=== PATIENT | female | born 1980 | race Hispanic/Latino ===

== ENCOUNTER 2021-12-16 21:29 | Emergency (ER) | payer OTHER ==
[~2021-12-16] VITALS: Ht 160 cm; Wt 87.5 kg
[2021-12-16] MEDS ORDERED: SODIUM CHLORIDE 0.9% 500ML 500 ML IV STA (21:53)
[2021-12-16] MEDS ORDERED: DEXAMETHASONE SOD PHOS 10 MG/1 ML VIAL IV ONE (22:00)
[2021-12-16] MEDS ORDERED: KETOROLAC TROMETHAMINE 30 MG/ML VIAL IV ONE (22:00)
[2021-12-16] MEDS ORDERED: HYDRALAZINE HCL 20 MG/ML VIAL IV ONE (22:00)
[2021-12-16] MEDS ORDERED: ONDANSETRON HCL INJ 2MG/ML 2ML 2 MG/ML VIAL IV ONE (22:00)
[2021-12-16] MEDS ORDERED: DIPHENHYDRAMINE HCL INJ 50 MG/ML VIAL IV ONE (22:00)
[2021-12-16] MEDS ORDERED: DEXAMETHASONE SOD PHOS INJ 4 MG/ML SDV ONE (23:15)
[2021-12-16] MEDS ORDERED: DIPHENHYDRAMINE HCL INJ 50 MG/ML VIAL ONE (23:15)
[2021-12-16] MEDS ORDERED: ONDANSETRON HCL INJ 2MG/ML 2ML 2 MG/ML VIAL ONE (23:15)
[2021-12-16] MEDS ORDERED: KETOROLAC TROMETHAMINE 30 MG/ML VIAL ONE (23:15)
[2021-12-16] MEDS ORDERED: HYDRALAZINE HCL 20 MG/ML VIAL ONE (23:15)
[2021-12-16] MEDS ORDERED: SODIUM CHLORIDE 0.9% 500ML 500 ML ONE (23:16)
[2021-12-16] MEDS ORDERED: ESGIC 50-325-41 EACH PO (23:38)
[2021-12-16] MEDS ORDERED: LOSARTAN POTASS25 MG PO (23:38)
[2021-12-16] MEDS ORDERED: IBUPROFEN200 MG PO (23:47)
[2021-12-16 23:50] VITALS: BP 135/78
== END 2021-12-16 23:50 | disposition home or self-care (01) ==
LOC: FSED 21:32
DX: I16.0 Hypertensive urgency (principal); R51.9 Headache, unspecified; R73.9 Hyperglycemia, unspecified; I10 Essential (primary) hypertension
CPT/HCPCS: 70450; 80053; 81003; 81025; 85025; 96374; 96375; 96376; 99284; J0360; J1100; J1200; J1885; J2405; J7040

== ENCOUNTER 2023-08-24 11:12 | Emergency (ER) | payer OTHER ==
[~2023-08-24] VITALS: Ht 160 cm; Wt 87.5 kg
[~2023-08-24 11:12] MED LIST: ESGIC 50-325-41 EACH PO; IBUPROFEN200 MG PO; LOSARTAN POTASS25 MG PO
[2023-08-24] MEDS: FAMOTIDINE 20 MG/2 ML VIAL IV STA (11:39)
[2023-08-24] MEDS: ONDANSETRON HCL INJ 2MG/ML 2ML 2 MG/ML VIAL IV STA (11:39)
[2023-08-24] MEDS: ASPIRIN 81 MG CHEW TAB PO STA (12:31)
[2023-08-24] MEDS: MAGNESIUM/ALUMINUM/SIMETHICONE 30 ML UDC PO ONE (13:48)
[2023-08-24] MEDS: CYCLOBENZAPRINE HCL 10 MG TAB PO ONE (13:54)
[2023-08-24] MEDS: DIPHENHYDRAMINE HCL INJ 50 MG/ML VIAL IV ONE (15:41)
[2023-08-24] MEDS: SODIUM CHLORIDE 0.9% 1000ML 1,000 ML IV ONE (15:41)
[2023-08-24] MEDS: METHYLPREDNISOLONE SOD SUCC 125 MG/2ML VIAL IV ONE (15:43)
[2023-08-24] MEDS: FAMOTIDINE 20 MG/2 ML VIAL IV ONE (15:43)
[2023-08-24 16:38] VITALS: BP 163/93; PULSE 89; RESP 20
[2023-08-24 17:19] VITALS: O2SAT 99
== END 2023-08-24 17:45 | disposition other institution (70) ==
LOC: FSED 11:14
DX: R07.89 Other chest pain (principal); I81 Portal vein thrombosis; R91.8 Other nonspecific abnormal finding of lung field; T50.8X5A Adverse effect of diagnostic agents, initial encounter; I10 Essential (primary) hypertension; Z98.84 Bariatric surgery status
CPT/HCPCS: 71045; 71260; 80053; 80307; 81003; 81025; 84484; 85025; 85610; 93005; 99285